=== PATIENT | male | born 1985 | race African-American/Black ===

== ENCOUNTER 2019-03-12 16:41 | Emergency (ER) | payer OTHER ==
[2019-03-12] MEDS ORDERED: HYDROCODONE/APAP 5/325 MG TAB ONE (17:24)
[2019-03-12] MEDS ORDERED: IBUPROFEN 400 MG TAB ONE (17:24)
--- NOTE | 2019-03-12 18:04 | RAD REPORT ---
EXAM DESCRIPTION: RAD - Hand Right 3 View - 03/12/2019 5:20 pm CLINICAL HISTORY: PAIN COMPARISON: <Comparisons> FINDINGS: Soft tissue swelling affects the first digit. No fracture, dislocation or foreign body a ppreciated.
--- NOTE | 2019-03-12 18:18 | EDPHYS ---
Physician Documentation [facility] Name: Gregory Skelton Age: 33 yrs Sex: Male : 1985 Arrival Date: 03/12/2019 Time: 16:49 Bed 19 Private MD: ED Physician Mo Brannon HPI: 03/12 17:05 This 33 yrs old Black Male presents to ER via Ambulatory with complaints of Hand cp Swelling. 17:05 The patient or guardian reports pain, swelling, tenderness. The complaints affect the cp MCP of right thumb and hyperthenar area. 17:05 Context: resulted from hyperextension of thumb while checking tire pressure on vehicle. cp Onset: The symptoms/episode began/occurred 3 day(s) ago. Associated signs and symptoms: Pertinent negatives: cyanosis distally, decreased sensation distally, fever, erythema. 17:05 Modifying factors: the symptoms are aggravated by movement and palpation of right cp thumb. Severity of symptoms: in the emergency department the symptoms are unchanged, despite home interventions. Historical: - Allergies: 16:54 No Known Allergies; hj - PMHx: 16:54 None; hj - PSHx: 16:54 Knee surgery; hj - Immunization history:: Adult Immunizations. - Social history:: Smoking status: . - Ebola Screening: : Patient denies travel to an Ebola-affected area in the 21 days before illness onset. ROS: 17:10 Constitutional: Negative for body aches, chills, fever, poor PO intake. cp 17:10 Cardiovascular: Negative for chest pain. cp 17:10 Respiratory: Negative for cough, shortness of breath, wheezing. 17:10 Abdomen/GI: Negative for abdominal pain, nausea, vomiting, and diarrhea. 17:10 MS/extremity: Positive for pain, swelling, tenderness, of the proximal phalanx of right thumb and MCP of right thumb and proximal and hyperthenar eminence of right hand, Negative for decreased range of motion, paresthesias. 17:10 Neuro: Negative for numbness, tingling. 17:10 All other systems are negative. Exam: 17:20 Constitutional: The patient appears in no acute distress, alert, awake, non-toxic, well cp developed, well nourished. 17:20 Head/Face: Normocephalic, atraumatic. cp 17:20 Eyes: Periorbital structures: appear normal, Conjunctiva: normal, Lids and lashes: appear normal, bilaterally. 17:20 ENT: External ear(s): are unremarkable, Nose: is normal, Mouth: is normal. 17:20 Chest/axilla: Inspection: normal. 17:20 Cardiovascular: Rate: normal. 17:20 Respiratory: the patient does not display signs of respiratory distress, Respirations: normal. 17:20 Musculoskeletal/extremity: Extremities: grossly normal except: noted in the MCP of right thumb and proximal phalanx of right thumb and hyperthenar eminence of right hand: pain, swelling, tenderness, ROM: limited passive range of motion due to pain, in the MCP of right thumb, Perfusion: the extremity is normally perfused throughout, Sensation intact. Tendon exam: specific tendon testing normal through active and passive range of motion 17:20 Skin: cellulitis, is not appreciated, no rash present. Vital Signs: 16:54 BP 118 / 75; Pulse 84; Resp 18; Temp 97.9(O); Pulse Ox 98% on R/A; Weight 117.93 kg; hj Height 5 ft. 9 in. (175.26 cm); Pain 10/10; 18:07 BP 108 / 98; Pulse 78; Resp 17; Pulse Ox 99% on R/A; Pain 6/10; tw2 16:54 Body Mass Index 38.39 (117.93 kg, 175.26 cm) Procedures: 18:16 Splinting: Splint applied to right thumb and wrist using thumb spica type. applied by cp nurse. Examined by me, post splint application: neurovascular intact, Patient tolerated well. MDM: 17:00 Patient medically screened. cp 17:45 Differential diagnosis: dislocation, closed fracture, tendonitis, sprain, strain, cp cellulitis. 18:15 ED course: VSS. Pain improved with meds. Extremity placed in thumb spica splint and cp will discharge to home for continued monitoring. 18:17 Data reviewed: vital signs, nurses notes, radiologic studies, plain films. cp 18:17 Test interpretation: by ED physician or midlevel provider: plain radiologic studies. cp Counseling: I had a detailed discussion with the patient and/or guardian regarding: the historical points, exam findings, and any diagnostic results supporting the discharge/admit diagnosis, radiology results, the need for outpatient follow up, a orthopedic surgeon, to return to the emergency department if symptoms worsen or persist or if there are any questions or concerns that arise at home. Response to treatment: the patient's symptoms have markedly improved after treatment, and as a result, I will discharge patient. 03/12 17:03 Order name: XRAY Hand RIGHT 3 View; Complete Time: 18:08 cp 03/12 18:06 Interpretation: Report reviewed. cp 03/12 18:07 Order name: Thumb Spica Splint; Complete Time: 18:19 cp Administered Medications: 17:11 Drug: HYDROcodone-acetaminophen 5 mg-325 mg 1 tabs Route: PO; tw2 18:04 Follow up: Response: No adverse reaction; Pain is decreased tw2 17:11 Drug: Ibuprofen 800 mg Route: PO; tw2 18:04 Follow up: Response: No adverse reaction tw2 Disposition: 18:35 Chart complete. 03/13 07:52 Co-signature as Attending Physician, Mo Brannon MD I agree with the assessment and kdr plan of care. Disposition: 03/12/19 18:18 Discharged to Home. Impression: Unspecified sprain of right thumb. - Condition is Stable. - Discharge Instructions: Thumb Sprain. - Prescriptions for Ibuprofen 800 mg Oral Tablet - take 1 tablet by ORAL route every 8 hours As needed take with food; 30 tablet. - Medication Reconciliation Form, Thank You Letter, Antibiotic Education, Prescription Opioid Use form. - Follow up: Nick Gonzalez MD; When: 5 - 6 days; Reason: Recheck today's complaints, pain swelling continues. - Problem is new. - Symptoms have improved. Signatures: Dispatcher [employer] EDMS Mo Brannon MD MD [facility] Mitch Hammer RN RN Timi De Santiago PA PA cp She Wei RN RN tw2 Corrections: (The following items were deleted from the chart) 03/12 18:26 18:18 03/12/2019 18:18 Discharged to Home. Impression: Unspecified sprain of right tw2 thumb. Condition is Stable. Forms are Medication Reconciliation Form, Thank You Letter, Antibiotic Education, Prescription Opioid Use. Follow up: Nick Gonzalez; When: 5 - 6 days; Reason: Recheck today's complaints, pain swelling continues. Problem is new. Symptoms have improved. cp
--- NOTE | 2019-03-12 18:18 | ER ---
Nurse's Notes [facility] Name: Gregory Skelton Age: 33 yrs Sex: Male : 1985 Arrival Date: 03/12/2019 Time: 16:49 Bed 19 Private MD: Diagnosis: Unspecified sprain of right thumb Presentation: 03/12 16:52 Presenting complaint: Patient states: my R thumb is swollen for checking pressure on my hj tires; its been going on for 3 days;. Transition of care: patient was not received from another setting of care. Onset of symptoms was March 12, 2019. Risk Assessment: Do you want to hurt yourself or someone else? Patient reports no desire to harm self or others. Initial Sepsis Screen: Does the patient meet any 2 criteria? No. Patient's initial sepsis screen is negative. Does the patient have a suspected source of infection? No. Patient's initial sepsis screen is negative. Care prior to arrival: None. 16:52 Method Of Arrival: Ambulatory 16:52 Acuity: LIZETH 4 hj Historical: - Allergies: 16:54 No Known Allergies; hj - PMHx: 16:54 None; hj - PSHx: 16:54 Knee surgery; hj - Immunization history:: Adult Immunizations. - Social history:: Smoking status: . - Ebola Screening: : Patient denies travel to an Ebola-affected area in the 21 days before illness onset. Screenin:07 Abuse screen: Denies threats or abuse. Nutritional screening: No deficits noted. tw2 Tuberculosis screening: No symptoms or risk factors identified. Fall Risk None identified. Assessment: 17:00 General: Appears in no apparent distress. obese, Behavior is calm, cooperative, tw2 appropriate for age. Pain: Complains of pain in dorsal aspect of proximal phalanx of right thumb. Neuro: Level of Consciousness is awake, alert, obeys commands, Oriented to person, place, time, situation. Cardiovascular: Patient's skin is warm and dry. Respiratory: Airway is patent Respiratory effort is even, unlabored, Respiratory pattern is regular, symmetrical. GI: No signs and/or symptoms were reported involving the gastrointestinal system. : No signs and/or symptoms were reported regarding the genitourinary system. EENT: No signs and/or symptoms were reported regarding the EENT system. Derm: No signs and/or symptoms reported regarding the dermatologic system. Musculoskeletal: Circulation, motion, and sensation intact. Range of motion: limited in MCP of right thumb Swelling present in dorsal aspect of proximal phalanx of right thumb. 18:07 Reassessment: Patient appears in no apparent distress at this time. No changes from tw2 previously documented assessment. Patient and/or family updated on plan of care and expected duration. Pain level reassessed. Patient is alert, oriented x 3, equal unlabored respirations, skin warm/dry/pink. Patient states feeling better. Patient states symptoms have improved. 18:25 Reassessment: Patient appears in no apparent distress at this time. No changes from tw2 previously documented assessment. Patient and/or family updated on plan of care and expected duration. Pain level reassessed. Patient is alert, oriented x 3, equal unlabored respirations, skin warm/dry/pink. Vital Signs: 16:54 BP 118 / 75; Pulse 84; Resp 18; Temp 97.9(O); Pulse Ox 98% on R/A; Weight 117.93 kg; hj Height 5 ft. 9 in. (175.26 cm); Pain 10/10; 18:07 BP 108 / 98; Pulse 78; Resp 17; Pulse Ox 99% on R/A; Pain 6/10; tw2 16:54 Body Mass Index 38.39 (117.93 kg, 175.26 cm) ED Course: 16:49 Patient arrived in ED. mr 16:53 Triage completed. hj 16:55 Arm band placed on left wrist. hj 16:57 [facility]aca [facility]. cp 16:57 Mo Brannon MD is Attending Physician. cp 17:00 Bed in low position. Call light in reach. Adult w/ patient. tw2 17:08 She Wei, DARIO is Primary Nurse. tw2 17:20 XRAY Hand RIGHT 3 View In Process Unspecified. EDMS 18:17 Nick Gonzalez MD is Referral Physician. cp 18:25 No provider procedures requiring assistance completed. Patient did not have IV access tw2 during this emergency room visit. Administered Medications: 17:11 Drug: HYDROcodone-acetaminophen 5 mg-325 mg 1 tabs Route: PO; tw2 18:04 Follow up: Response: No adverse reaction; Pain is decreased tw2 17:11 Drug: Ibuprofen 800 mg Route: PO; tw2 18:04 Follow up: Response: No adverse reaction tw2 Outcome: 18:18 Discharge ordered by . cole 18:25 Discharged to home ambulatory, with significant other. tw2 18:25 Condition: stable 18:25 Discharge instructions given to patient, significant other, Instructed on discharge instructions, follow up and referral plans. medication usage, Demonstrated understanding of instructions, follow-up care, medications, Prescriptions given X 1. 18:26 Patient left the ED. tw2 Signatures: Dispatcher [employer] HUDSON Andreea LirianoMitch, RN RN hj Tiim Menchaca PA PA cp Wise, Tara RN RN tw2 Corrections: (The following items were deleted from the chart) 16:56 16:54 Pulse 84bpm; Resp 18bpm; Pulse Ox 98% RA; Temp 97.9F Oral; 117.93 kg; Height 5 hj ft. 9 in.; BMI: 38.3; Pain 10/10; hj
== END 2019-03-12 18:26 | disposition home or self-care (01) ==
LOC: ER 16:41
DX: S63.601A Unspecified sprain of right thumb, initial encounter (principal); X50.9XXA Other and unspecified overexertion or strenuous movements or postures, initial encounter
CPT/HCPCS: 99283

== ENCOUNTER 2019-05-29 20:31 | Emergency (ER) | payer OTHER ==
[2019-05-29] MEDS ORDERED: LIDOCAINE 1% MPF 5 ML VIAL ONE (20:39)
[2019-05-29] MEDS ORDERED: HYDROCODONE/APAP 10/325 TAB ONE (20:47)
[2019-05-29] MEDS ORDERED: CEFAZOLIN SODIUM 1 GM/VIAL ONE (21:05)
[2019-05-29] MEDS ORDERED: WATER FOR INJ,STERILE 10 ML ONE (21:05)
--- NOTE | 2019-05-29 21:08 | ER ---
Nurse's Notes [facility] Name: Gregory Skelton Age: 34 yrs Sex: Male : 1985 Arrival Date: 05/29/2019 Time: 20:31 Bed 5 Private MD: Diagnosis: Pilonidal cyst Presentation: 05/29 20:41 Presenting complaint: Patient states: Abscess to top of buttocks that began about 3 lp1 days ago, unable to lie on back or sit due to pain. Transition of care: patient was not received from another setting of care. Onset of symptoms was May 29, 2019. Risk Assessment: Do you want to hurt yourself or someone else? Patient reports no desire to harm self or others. Initial Sepsis Screen: Does the patient meet any 2 criteria? No. Patient's initial sepsis screen is negative. Does the patient have a suspected source of infection? No. Patient's initial sepsis screen is negative. Care prior to arrival: None. 20:41 Method Of Arrival: Ambulatory lp1 20:41 Acuity: LIZETH 4 lp1 Historical: - Allergies: 20:42 No Known Allergies; lp1 - Home Meds: 20:42 None [Active]; lp1 - PMHx: 20:42 None; lp1 - PSHx: 20:42 Knee surgery; lp1 - Immunization history:: Adult Immunizations up to date. - Social history:: Smoking status: Patient uses tobacco products, smokes one-half pack cigarettes per day. - Ebola Screening: : No symptoms or risks identified at this time. Screenin:42 Abuse screen: Denies threats or abuse. Denies injuries from another. Nutritional tl1 screening: No deficits noted. Tuberculosis screening: No symptoms or risk factors identified. Fall Risk None identified. 20:42 Abuse screen: Denies threats or abuse. Denies injuries from another. Nutritional rr5 screening: No deficits noted. Tuberculosis screening: No symptoms or risk factors identified. Fall Risk None identified. Total Andrade Fall Scale indicates No Risk (0-24 pts). Assessment: 20:39 General: Appears in no apparent distress. uncomfortable, Behavior is calm, cooperative, tl1 appropriate for age. Pain: Complains of pain in gluteal cleft. Neuro: Level of Consciousness is awake, alert, obeys commands, Oriented to person, place, time, situation. Cardiovascular: No deficits noted. Denies chest pain. Respiratory: Airway is patent Trachea midline Respiratory effort is even, unlabored. GI: Abdomen is obese. : No signs and/or symptoms were reported regarding the genitourinary system. Derm: Abscess located on gluteal cleft is quarter sized, is hot to touch, is raised, Reports. 21:17 Reassessment: Patient appears in no apparent distress at this time. Patient is alert, rr5 oriented x 3, equal unlabored respirations, skin warm/dry/pink. discharge instruction given and explained without complaints made. Patient states feeling better. Patient states symptoms have improved. Vital Signs: 20:42 BP 145 / 98; Pulse 92; Resp 18; Temp 98.6(O); Pulse Ox 97% on R/A; Weight 117.03 kg; lp1 Height 5 ft. 8 in. (172.72 cm); Pain 10/10; 21:17 BP 135 / 70; Pulse 90; Resp 16; Pulse Ox 99% ; Pain 4/10; rr5 20:42 Body Mass Index 39.23 (117.03 kg, 172.72 cm) lp1 ED Course: 20:31 Patient arrived in ED. ag3 20:35 Bin Chaves MD is Attending Physician. pkl 20:39 Hortensia Berrios, DARIO is Primary Nurse. tl1 20:41 Triage completed. lp1 20:42 Patient has correct armband on for positive identification. Bed in low position. Call rr5 light in reach. Pulse ox on. NIBP on. 20:42 Arm band placed on. lp1 20:50 Assist provider with I \T\ D: of an abscess on pilonidal cyst Set up I\T\D tray. Performed rr 5 by Bin Chaves MD Culture sent to lab. Wound packed. 4X4s, Dressing with 4X4s, tape Patient tolerated well. 21:07 Mitch Hendrickson MD is Referral Physician. pkl 21:18 Patient did not have IV access during this emergency room visit. rr5 Administered Medications: 20:48 Drug: [place] 10 mg-325 mg 1 tabs {Note: rass 0.} Route: PO; rr5 21:19 Follow up: Response: No adverse reaction; Pain is decreased; RASS: Alert and Calm (0) rr5 20:50 Drug: Lidocaine (1 %) 10 ml {Note: by dr. chaves.} Volume: 5 ml; Route: Infiltration; rr5 21:12 Drug: Ancef 1 grams Route: IM; Site: left gluteus; rr5 21:19 Follow up: Response: Medication administered at discharge. rr5 Outcome: 21:07 Discharge ordered by . william 21:18 Discharged to home ambulatory, with family. rr5 21:18 Condition: stable 21:18 Discharge instructions given to patient, Instructed on discharge instructions, follow up and referral plans. medication usage, Demonstrated understanding of instructions, follow-up care, medications, Prescriptions given X 2. 21:19 Patient left the ED. rr5 Addendum: 06/03/2019 14:57 Addendum: Culture Results: Positive wound culture. No further action required. Bacteria s s sensitive to prescribed antibiotic. Signatures: Bin Chaves MD MD pkl Nicki Lopez RN RN ss Stephanie Mays RN RN lp1 Hortensia Berrios, RN RN tl1 Madhavi Murcia [facility] David Sky, RN RN rr5
--- NOTE | 2019-05-29 21:08 | EDPHYS ---
Physician Documentation [facility] Name: Gregory Skelton Age: 34 yrs Sex: Male : 1985 Arrival Date: 05/29/2019 Time: 20:31 Bed 5 Private MD: ED Physician Bin Chaves HPI: 05/29 20:45 This 34 yrs old Black Male presents to ER via Ambulatory with complaints of Boil. pkl 20:45 The patient presents with an abscess of the top of the buttock. Description: The pkl affected area is moderate sized, approximately 2 cm(s). Onset: The symptoms/episode began/occurred 3 day(s) ago. Historical: - Allergies: 20:42 No Known Allergies; lp1 - Home Meds: 20:42 None [Active]; lp1 - PMHx: 20:42 None; lp1 - PSHx: 20:42 Knee surgery; lp1 - Immunization history:: Adult Immunizations up to date. - Social history:: Smoking status: Patient uses tobacco products, smokes one-half pack cigarettes per day. - Ebola Screening: : No symptoms or risks identified at this time. ROS: 20:45 Eyes: Negative for injury, pain, redness, and discharge, ENT: Negative for injury, pkl pain, and discharge, Neck: Negative for injury, pain, and swelling, Cardiovascular: Negative for chest pain, palpitations, and edema, Respiratory: Negative for shortness of breath, cough, wheezing, and pleuritic chest pain, Abdomen/GI: Negative for abdominal pain, nausea, vomiting, diarrhea, and constipation, Back: Negative for injury and pain, : Negative for injury, bleeding, discharge, and swelling, MS/Extremity: Negative for injury and deformity, Neuro: Negative for headache, weakness, numbness, tingling, and seizure. 20:45 Skin: Positive for abscess, of the top of the buttocks. Exam: 20:45 Head/Face: Normocephalic, atraumatic. Eyes: Pupils equal round and reactive to light, pkl extra-ocular motions intact. Lids and lashes normal. Conjunctiva and sclera are non-icteric and not injected. Cornea within normal limits. Periorbital areas with no swelling, redness, or edema. ENT: Nares patent. No nasal discharge, no septal abnormalities noted. Tympanic membranes are normal and external auditory canals are clear. Oropharynx with no redness, swelling, or masses, exudates, or evidence of obstruction, uvula midline. Mucous membranes moist. Neck: Trachea midline, no thyromegaly or masses palpated, and no cervical lymphadenopathy. Supple, full range of motion without nuchal rigidity, or vertebral point tenderness. No Meningismus. Chest/axilla: Normal chest wall appearance and motion. Nontender with no deformity. No lesions are appreciated. Cardiovascular: Regular rate and rhythm with a normal S1 and S2. No gallops, murmurs, or rubs. Normal PMI, no JVD. No pulse deficits. Respiratory: Lungs have equal breath sounds bilaterally, clear to auscultation and percussion. No rales, rhonchi or wheezes noted. No increased work of breathing, no retractions or nasal flaring. Abdomen/GI: Soft, non-tender, with normal bowel sounds. No distension or tympany. No guarding or rebound. No evidence of tenderness throughout. Back: No spinal tenderness. No costovertebral tenderness. Full range of motion. MS/ Extremity: Pulses equal, no cyanosis. Neurovascular intact. Full, normal range of motion. Neuro: Awake and alert, GCS 15, oriented to person, place, time, and situation. Cranial nerves II-XII grossly intact. Motor strength 5/5 in all extremities. Sensory grossly intact. Cerebellar exam normal. Normal gait. 20:45 Skin: abscess, that is moderate sized, approximately 2 cm(s), of the top of buttock, with fluctuance, that is moderate. Vital Signs: 20:42 BP 145 / 98; Pulse 92; Resp 18; Temp 98.6(O); Pulse Ox 97% on R/A; Weight 117.03 kg; lp1 Height 5 ft. 8 in. (172.72 cm); Pain 10/10; 21:17 BP 135 / 70; Pulse 90; Resp 16; Pulse Ox 99% ; Pain 4/10; rr5 20:42 Body Mass Index 39.23 (117.03 kg, 172.72 cm) lp1 Procedures: 21:04 I \T\ D: Incision and drainage was performed for an abscess of the top of buttock Prepped pkl with Betadine, Anesthetized with 5 ml's 1% Lidocaine w/ Epi. Incised with #11 blade. Drained large amount purulent fluid. Packed with iodoform gauze, Dressing: sterile 4x4 gauze, the patient tolerated the procedure well. MDM: 20:35 Patient medically screened. pk 21:04 Data reviewed: vital signs, nurses notes. ED course: Advised to follow up with Dr. william Hendrickson in 2 days. Patient understood instruction.. 05/29 21:04 Order name: Wound Culture [facility] 05/29 21:04 Order name: Wound Culture [facility] 05/29 20:48 Order name: Dressing - Wound; Complete Time: 21:12 rr5 05/29 20:48 Order name: Gloves, Sterile; Complete Time: 21:12 rr5 05/29 20:48 Order name: I\T\D Setup; Complete Time: 21:12 rr5 Administered Medications: 20:48 Drug: [place] 10 mg-325 mg 1 tabs {Note: rass 0.} Route: PO; rr5 21:19 Follow up: Response: No adverse reaction; Pain is decreased; RASS: Alert and Calm (0) rr5 20:50 Drug: Lidocaine (1 %) 10 ml {Note: by dr. chaves.} Volume: 5 ml; Route: Infiltration; rr5 21:12 Drug: Ancef 1 grams Route: IM; Site: left gluteus; rr5 21:19 Follow up: Response: Medication administered at discharge. rr5 Disposition: 05/29/19 21:07 Discharged to Home. Impression: Pilonidal cyst. - Condition is Stable. - Prescriptions for Dicloxacillin 500 mg Oral Capsule - take 1 capsule by ORAL route every 6 hours for 7 days; 28 capsule. Ultram 50 mg Oral Tablet - take 1 tablet by ORAL route every 8 hours As needed; 15 tablet. - Medication Reconciliation Form, Thank You Letter, Antibiotic Education, Prescription Opioid Use form. - Follow up: Mitch Hendrickson MD; When: 2 - 3 days; Reason: Re-evaluation by your physician. - Problem is new. - Symptoms have improved. Signatures: Dispatcher [employer] Bin Zepeda MD MD pkl Pena, Laura, RN RN lp1 David Sky RN RN rr5 Corrections: (The following items were deleted from the chart) 21:19 21:07 05/29/2019 21:07 Discharged to Home. Impression: Pilonidal cyst. Condition is rr5 Stable. Forms are Medication Reconciliation Form, Thank You Letter, Antibiotic Education, Prescription Opioid Use. Follow up: Mitch Hendrickson; When: 2 - 3 days; Reason: Re-evaluation by your physician. Problem is new. Symptoms have improved. pkl
== END 2019-05-29 21:19 | disposition home or self-care (01) ==
LOC: ER 20:31
PROC: 0H98XZZ Drainage of Buttock Skin, External Approach (ICD-10-PCS; principal; 2019-05-29)
DX: L05.01 Pilonidal cyst with abscess (principal); F17.210 Nicotine dependence, cigarettes, uncomplicated
CPT/HCPCS: 87070; 87205; 87077; 87186; 96372; 99284; 10080; J0690

== ENCOUNTER 2019-06-03 07:09 | Day surgery (SDC) | payer OTHER ==
[2019-05-31 13:39] LABS: Basophils % 0.7 % (0-1.3); Hematocrit 36.3 % (39.6-49.0); Lymphocytes % 27.6 % (15.3-44.8); MPV 7.7 fL (7.6-11.3); RBC Red Blood Cell Count 3.89 M/uL (4.33-5.43)
[2019-05-31 13:53] LABS: Potassium 3.6 mmol/L (3.5-5.1)
--- NOTE | 2019-05-31 14:29 | RAD REPORT ---
EXAM DESCRIPTION: RAD - Chest Pa And Lat (2 Views) - 05/31/2019 1:47 pm CLINICAL HISTORY: pre op sds room5, pending soft tissue mass removal COMPARISON: None. TECHNIQUE: PA and lateral views of the chest were obtained. FINDINGS: The lungs are clear. Heart size is normal and central vasculature is within normal limit s. No pleural effusion or pneumothorax seen. No acute bony finding noted. No aortic abnormality. IMPRESSION: No acute cardiopulmonary process.
[2019-06-03] MEDS ORDERED: Ringers Lactate 1,000 ML IV ONE (07:48)
[2019-06-03] MEDS ORDERED: CEFAZOLIN/SWI 1gm 1 GM/10 ML SYR ONE (07:48)
[2019-06-03] MEDS ORDERED: ROCURONIUM 50 MG/5 ML VIAL IV ONE (08:11)
[2019-06-03] MEDS ORDERED: PROPOFOL 200 MG/20 ML VIAL IV ONE (08:11)
[2019-06-03] MEDS ORDERED: FENTANYL CITR 100 MCG/2 ML ONE (08:11)
[2019-06-03] MEDS ORDERED: LIDOCAINE 1% MPF 2 ML AMPULE ONE (08:13)
[2019-06-03] MEDS ORDERED: ONDANSETRON 4 MG/2 ML VIAL ONE (08:13)
[2019-06-03] MEDS ORDERED: METHYLENE BLUE 0.5% 10 ML AMP ONE (08:15)
[2019-06-03] MEDS ORDERED: MIDAZOLAM HCL 2 MG/2 ML INJ ONE (08:27)
[2019-06-03] MEDS ORDERED: GLYCOPYRROLATE 0.2 MG/ML SYR ONE (09:09)
[2019-06-03] MEDS ORDERED: NEOSTIGMINE 1 MG/ML -10 ML VIAL ONE (09:10)
--- NOTE | 2019-06-03 09:16 | P.BOP ---
Preoperative diagnosis: infected pilonydal cyst with abscess Postoperative diagnosis: same Primary procedure: Wide excision of infected pilonydal cyst with abscess incision and drainage Estimated blood loss: <10cc Specimen: cyst, culture Findings: infected pilonydal cyst with abscess Anesthesia: General Transferred to: Recovery Room Condition: Good
[2019-06-03 09:32] VITALS: O2SAT 100
[2019-06-03] MEDS ORDERED: PROMETHAZINE 25 MG/ML VIAL ONE (09:38)
[2019-06-03] MEDS ORDERED: TRAMADOL HCL 50 MG TAB ONE (10:11)
[2019-06-03 10:18] VITALS: BP 141/90; TEMP 96.8
== END 2019-06-03 11:00 | disposition home or self-care (01) ==
LOC: OR 07:09
PROVIDERS: ATTEND Surgery
PROC: 0JB90ZZ Excision of Buttock Subcutaneous Tissue and Fascia, Open Approach (ICD-10-PCS; principal; 2019-06-03 08:30)
DX: L05.01 Pilonidal cyst with abscess (principal); F17.210 Nicotine dependence, cigarettes, uncomplicated; E66.9 Obesity, unspecified; Z68.38 Body mass index [BMI] 38.0-38.9, adult; Z82.49 Family history of ischemic heart disease and other diseases of the circulatory system
CPT/HCPCS: 87070; 85025; 80048; 36415; 87205; 88304; 87075; 71046; 11770; J2704; J2710; J2550; J2250; J3010; J2001; J0690; J2405

== ENCOUNTER 2020-05-02 18:22 | Emergency (ER) | payer OTHER ==
--- OUTSIDE RECORDS SUMMARY | 2020-05-02 18:24 | XMS REPORT | Continuity of Care Document ---
:1985 Author Organization [facility] t Address [address] [place] [address] Care Team Providers Name Role Phone Dar Mishra MD Attending Clinician Problems This patient has no known problems. Allergies, Adverse Reactions, Alerts This patient has no known allergies or adverse reactions. Medications This patient has no known medications. Procedures This patient has no known procedures. Encounters Start End Encounter Admission Attending Care Care Encounter Source Date/Time Date/Time Type Type Clinicians Facility Department ID 2020-04-16 2020-04-16 Telephone ROBINSON Mishra [id number] 00:00:00 00:00:00 Beau Dar [facility] [id number] Surgical [id number] Specialti [id number] es 198 [place] 2020-04-15 2020-04-15 Office ROBINSON Mishra [id number] 13:20:48 13:36:24 Visit Beau Dar [facility] [id number] Surgical [id number] Specialti [id number] es 198 Neetu Results This patient has no known results.
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
--- OUTSIDE RECORDS SUMMARY | 2020-05-02 18:25 | XMS REPORT | Summary of Care ---
:1985 Author Organization [facility] Address [address] [place] [address] Care Team Providers Name Role Phone Pcp, Does Not Have A Primary Care Provider Reason for Referral MRI/CAT Scan (Routine) Status Reason Specialty Diagnoses / Referred By Referred To Procedures Contact Contact New Request Diagnostic Diagnoses Chronic bilateral low back pain, unspecified whether sciatica present Beau Mishra Radiology Procedures MR LUMBAR SPINE WO TWILA Dodge MD [address] [place] [address] [place] [address] Reason for Visit Reason Comments Leg Pain left 10/10 x 2 months Foot Pain right 10/10 x 5 months Auth/Cert Status Reason Specialty Diagnoses / Procedures Referred By C ontact Referred To Contact Radiology [facility] [address] [place] [address] Phone: Fax: Encounter Details Date Type Department Care Team Description 03/23/2020 Office Visit [facility] Orthopaedic Beau Mishra hronic bilateral low Surgery- Neetu Dodge MD back pain, unspecified [address] whether sciatica [address] present (Primary Dx) [place] [address] [place], [place] [phone] Allergies No Known Allergiesdocumented as of this encounter (statuses as of 03/25/2020) Medications Medication Sig Dispensed Refills Start Date [...] as of this encounter (statuses as of 03/25/2020) Active Problems No known active problemsdocumented as of this encounter (statuses as of 03/25/2020) Social History Tobacco Use Types Packs/Day Years [...] of this encounter Last Filed Vital Signs Vital Sign Reading Time Taken Comments Blood Pressure 121/88 03/23/2020 3:29 PM CDT Pulse 80 03/23/2020 3:29 PM CDT Temperature - - Respiratory Rate - - Oxygen Saturation - - Inhaled Oxygen Concentration - - Weight 124.9 kg (275 lb 6.4 oz) 03/23/2020 3:29 PM CDT Height 172.7 cm (5' 8") 03/23/2020 3:29 PM CDT Body Mass Index 41.87 03/23/2020 3:29 PM CDT documented in this encounter Progress Notes Beau Mishra MD - 03/23/2020 4:00 PM CDT Cc: Chief Complaint Patient presents with Leg Pain left 10/10 x 2 months Foot Pain right 10/10 x 5 months Gregory Skelton is a 34 year old male. Knee Pain Incident onset: several months The incident occurred at home. There was no injury mechanism. The pain is present in the left knee, left heel, left ankle and left foot. The quality of the pain is described as aching, shooting and stabbing. The pain is at a severity of 6/10. The pain is moderate. The pain has been worsening since onset. Associated symptoms include an inability to bear weight. Associated symptoms comments: Pain radiates from posterior aspect of knee down to his heel. Denies back pain.. The symptoms are aggravated by movement and weight bearing. He has tried non-weight bearing for the symptoms. Allergies Gregory has No Known Allergies. Medications Outpatient Medications Prior to Visit Medication Sig Dispense Refill DICLOFENAC 75 mg EC tablet TAKE 1 TABLET BY MOUTH TWICE DAILY WITH MEALS 60 tablet 0 traMADol 50 mg tablet Take 1 tablet by mouth every 4 (four) hours as needed for Pain (scale 7-10). 40 tablet 0 amoxicillin-pot clavulanate 500 mg 500-125 mg tablet Take 1 tablet by mouth every 8 (eight) hours. 20 tablet 0 traMADol (ULTRAM) 50 mg tablet Take 1 tablet by mouth every 6 (six) hours as needed for Pain (scale 7-10). 20 tablet 0 No facility-administered medications prior to visit. Histories No past medical history on file. No past surgical history on file. Social History Socioeconomic History Marital status: Single Spouse name: Not on file Number of children: Not on file Years of education: Not on file Highest education level: Not on file Occupational History Not on file Social Needs Financial resource strain: Not on file Food insecurity: Worry: Not on file Inability: Not on file Transportation needs: Medical: Not on file Non-medical: Not on file Tobacco Use Smoking status: Current Every Day Smoker Smokeless tobacco: Never Used Substance and Sexual Activity Alcohol use: Never Frequency: Never Drug use: Not on file Sexual activity: Not on file Lifestyle Physical activity: Days per week: Not on file Minutes per session: Not on file Stress: Not on file Relationships Social connections: Talks on phone: Not on file Gets together: Not on file Attends sikhism service: Not on file Active member of club or organization: Not on file Attends meetings of clubs or organizations: Not on file Relationship status: Not on file Intimate partner violence: Fear of current or ex partner: Not on file Emotionally abused: Not on file Physically abused: Not on file Forced sexual activity: Not on file Other Topics Concern Not on file Social History Narrative Not on file Family History Problem Relation Age of Onset No Significant Medical Problems Mother No Significant Medical Problems Father Review of Systems Constitutional: Negative. HENT: Negative. Eyes: Negative. Respiratory: Negative. Breasts: Negative. Cardiovascular: Negative. Gastrointestinal: Negative. Genitourinary: Negative. Musculoskeletal: Negative. Skin: Negative. Neurological: Negative. Psychiatric/Behavioral: Negative. Endocrine: Endocrine negative Vital Signs There were no vitals taken for this visit. Physical Exam Musculoskeletal: General: Well-developed well-nourished oriented to person place and time HEENT normocephalic atraumatic atraumatic pupils equal round reactive to light extraocular muscles intact Cervical thoracic and lumbar spine without focal deficit normal kyphosis and lordosis Chest clear to auscultation and percussion Cardiovascular regular rate and rhythm without gallop rub or murmur soft without organomegaly Normal bowel sounds Neurologic: Focal myotome or dermatomal deficits Vascular: Intact symmetrical bilateral upper and lower extremities Skin without stasis varicosities or breakdown Extremities without cyanosis clubbing or edema Lymphatics no peripheral lymphedema Psych normal mood and affect. Neurovascular function is intact. To include brisk capillary refill warm pink skin active motor function and sensory function intact. Nursing note and vitals reviewed. Assessment/Plan Lumbar Radiculopathy MRI of the L-Spine. Follow up within ten days of the MRI for results. documented in this encounter Plan of Treatment Name Type Priority Associated Diagnoses Order S chedule MR LUMBAR SPINE WO IMAGING Routine Chronic bilateral low Expected: 03/24/2020, CONTRAST back pain, unspecified Expir es: 03/24/2021 whether sciatica present Health Maintenance Due Date Last Done Comments VARICELLA VACCINES (1 of 2 - 2-dose childhood series) 1985 PNEUMOCOCCAL 0-64 YEARS COMBINED SERIES (1 of 1 - 1990 PPSV23) DTaP,Tdap,and Td Vaccines (1 - Tdap) 1995 INFLUENZA VACCINE (#1) 2020 Depression Screening 10/17/2020 10/17/2019 documented as of this encounter Results Not on filedocumented in this encounter Visit Diagnoses Diagnosis Chronic bilateral low back pain, unspeci fied whether sciatica present - Primary documented in this encounter Insurance Payer Benefit Plan / Subscriber ID Effective Phone Address T ype Group Dates MEDICARE MEDICARE PART xxxxxxxxxxx 2015-Pres [phone] Medicare A & B ent [id number] [place] [address] [employer] xxxxxxxxx 2018-Pres [address] [place] [id number] [place] [address] documented as of this encounter
--- OUTSIDE RECORDS SUMMARY | 2020-05-02 18:25 | XMS REPORT | Summary of Care ---
:1985 Author Organization [facility] - [facility] Address [address] [place] [address] Care Team Providers Name Role Phone Pcp, Does Not Have A Primary Care Provider Encounter Details Date Type Department Care Team Description 03/23/2020 Orders Only [facility] Doctor Unassigned, No [address] [facility] [place] [address] [address] [place] [address] Allergies No Known Allergiesdocumented as of this [...] Date Type Specialty Care Team Description 03/23/2020 Appointment Radiology Beau Mishra MD [address] [phone] 03/23/2020 Office Visit Orthopedic Surgery Shefali Mishra MD [address] [phone] Health Maintenance Due Date Last Done Comments VARICELLA VACCINES (1 of 2 - 2-dose childhood series) 1985 PNEUMOCOCCAL 0-64 YEARS COMBINED SERIES (1 of 1 - 1990 PPSV23) DTaP,Tdap,and Td Vaccines (1 - Tdap) 1995 INFLUENZA VACCINE (Season Ended) 2020 Depression Screening 10/17/2020 10/17/2019 documented as of this encounter Procedures Procedure Name Priority Date/Time Associated Diagnosis Comme nts CONSENT/REFUSAL FOR Routine 03/23/2020 2:56 PM DIAGNOSIS AND TREATMENT CDT ASSIGNMENT OF BENEFITS Routine 03/23/2020 2:56 PM CDT documented in this encounter Results Not on filedocumented in this encounter Insurance Payer Benefit Plan / Subscriber ID Effective Phone Address T ype Group Dates MEDICARE MEDICARE PART xxxxxxxxxxx 2015-Pres [phone] Medicare A & B ent [id number] [place] [id number] [employer] xxxxxxxxx 2018-Pres [address] [place] [id number] [place] [address] documented as of this encounter
--- OUTSIDE RECORDS SUMMARY | 2020-05-02 18:26 | XMS REPORT | Summary of Care ---
:1985 Author Organization [facility] - [facility] Address [address] [place] [address] Care Team Providers Name Role Phone Pcp, Does Not Have A Primary Care Provider Reason for Referral MRI/CAT Scan (Routine) Status Reason Specialty Diagnoses / Referred By Referred To Procedures Contact Contact New Request Diagnostic Diagnoses Chronic bilateral low back pain, unspecified whether sciatica present Beau Mishra Radiology Procedures MR LUMBAR SPINE WO TWILA Dodge MD [address] [place] [address] [place] [address] Reason for Visit Reason Comments Leg Pain left 10/10 x 2 months Foot Pain right 10/10 x 5 months Auth/Cert Status Reason Specialty Diagnoses / Procedures Referred By C ontact Referred To Contact Radiology [facility] X[facility] [address] [place] [address] Phone: Fax: Encounter Details Date Type Department Care Team Description 03/23/[address] [facility] Orthopaedic Beau Mishra hronic bilateral low Surgery- Neetu oDdge MD back pain, unspecified [address] whether sciatica [address] present (Primary Dx) [place] [address] [place], [place] [phone] Allergies No Known Allergiesdocumented as of [...] file Gets together: Not on file Attends cheondoism service: Not on file Active member of [...] BOX Medicare A & B ent [id number] [place] [id number] [employer] xxxxxxxxx 2018-Pres [address] [place] [id number] [place] [address] documented as of this encounter
--- OUTSIDE RECORDS SUMMARY | 2020-05-02 18:26 | XMS REPORT | Summary of Care ---
:1985 Author Organization [facility] Address [address] [place] [address] Care Team Providers Name Role Phone Pcp, Does Not Have A Primary Care Provider Reason for Referral MRI/CAT Scan (Routine) Status Reason Specialty Diagnoses / Referred By Referred To Procedures Contact Contact Closed Diagnostic Diagnoses Chronic bilateral low back pain, unspecified whether sciatica present Beau Mishra Radiology Procedures MR LUMBAR SPINE WO CONTRAST MD Dar [address] [facility] [place] [address] Reason for Visit MRI/CAT Scan (Routine) Status Reason Specialty Diagnoses / Referred By Referred To Procedures Contact Contact Closed Diagnostic Diagnoses Chronic bilateral low back pain, unspecified whether sciatica present Beau Mishra Radiology Procedures MR LUMBAR SPINE WO CONTRAST MD Dar [address] [place] [address] [place] [address] Encounter Details Date Type Department Care Team Description 04/08/2020 Hospital Encounter [facility] Larisa Mishra Arrived [facility] [address] [place] [address] Dr vazquez [address] [place] [address] [address] [phone] [place] [address] Allergies No Known Allergiesdocumented as of this encounter (statuses as of 04/09/2020) Medications Medication Sig Dispensed Refills Start Date [...] directions back pain, unspecified whether sciatica present DICLOFENAC 75 mg EC TAKE 1 TABLET BY 60 tablet 1 03/30/2020 Active tabletIndications: Acute MOUTH TWICE pain of both knees DAILY WITH MEALS documented as of this encounter (statuses as of 04/09/2020) Active Problems No known active problemsdocumented as of this encounter (statuses as of 04/09/2020) Social History Tobacco Use Types Packs/Day Years [...] Name Priority Date/Time Associated Diagnosis Comme nts MR LUMBAR SPINE WO Routine 04/08/2020 8:31 AM Chronic bilater al Results for this CONTRAST CDT low back pain, procedure are in unspecified whether the resu lts sciatica present section. documented in this encounter Results MR LUMBAR SPINE WO CONTRAST (04/08/2020 8:31 AM CDT) Specimen Narrative Performed At HISTORY: Chronic back pain, bilateral le g pain, getting worse. PACS/VR/DOSE TECHNIQUE: Sagittal T2 FRFSE, T1, STIR a nd axial T2 FRFSE T1 studies of lumbar spines are obtained. Additional c oronal T2 FRFSE study is also obtained. FINDINGS: Minimal levoscoliosis noted. N o acute compression fracture or aggressive lesions of the bones detected . Spinal canal appears to be of adequate size and normal conus/cauda equina are found at the level of T12. Visualized retroperitoneum is unremarkable for aortic aneurysm or enlarged lymph nodes or hydronephrosis. T12-L1, L1-L2, L2-L3, L3-L4, L4-L5, L5-S1: All discs m aintain normal height and hydration. No disc desiccation detec nolan. No bulging of the disc into the spinal canal. No foraminal narrowing . Facet arthritis noted with thickened lig amentum flavum at all lumbar levels, slightly more hypertrophic changes at L3-L4 an d L4-L5 levels with small amount of fluid noted in facet kalia nts at L3-L4, L4-L5, L5-S1. CONCLUSIONS: Multilevel lumbar facet art hritis. No disc degeneration, bulging of the disc or disc herniation d etected into the spinal canal. Procedure Note [facility], Radiant Results Inft User - 2019 8:37 AM CDT HISTORY: Chronic back pain, bilateral leg pain, getting worse. TECHNIQUE: Sagittal T2 FRFSE, T1, STIR a nd axial T2 FRFSE T1 studies of lumbar spines are obtained. Additional c oronal T2 FRFSE study is also obtained. FINDINGS: Minimal levoscoliosis noted. N o acute compression fracture or aggressive lesions of the bones detected . Spinal canal appears to be of adequate size and normal conus/cauda equ phong are found at the level of T12. Visualized retroperitoneum is unremarkab le for aortic aneurysm or enlarged lymph nodes or hydronephrosis. T12-L1, L1-L2, L2-L3, L3-L4, L4-L5, L5-S 1: All discs maintain normal height and hydration. No disc desiccation detec nolan. No bulging of the disc into the spinal canal. No foraminal narrowing . Facet arthritis noted with thickened lig amentum flavum at all lumbar levels, slightly more hypertrophic titus es at L3-L4 and L4-L5 levels with small amount of fluid noted in facet kalia nts at L3-L4, L4-L5, L5-S1. CONCLUSIONS: Multilevel lumbar facet art hritis. No disc degeneration, bulging of the disc or disc herniation d etected into the spinal canal. Performing Organization Address City/State/Zipcode Phone Number PACS/VR/DOSE documented in this encounter Visit Diagnoses Diagnosis Chronic bilateral low back pain, unspeci fied whether sciatica present documented in this encounter Insurance Payer Benefit Plan / Subscriber ID Effective Phone Address T ype Group Dates MEDICARE MEDICARE PART xxxxxxxxxxx 2015-Pres [phone] Medicare A & B ent [id number] [place] [id number] [employer] xxxxxxxxx 2018-Pres [address] [place] [id number] [place] [address] Ilya Ramirez (Home) [address] [place] [address] documented as of this encounter
--- OUTSIDE RECORDS SUMMARY | 2020-05-02 18:26 | XMS REPORT | Summary of Care ---
:1985 Author Organization [facility] Address [address] [place] [address] Care Team Providers Name Role Phone Pcp, Does Not Have A Primary Care Provider Reason for Visit Reason Comments Notification The patient has orders for a n MRI and is requesting pain medication Encounter Details Date Type Department Care Team Description 03/24/2020 Telephone [facility] Orthopaedic Beau Mishra otification (The Surgery- Neetu Dodge MD patient has orders for [address], [address] MRI and is [address] [place] [address] [place], [place] medication ) [phone] Allergies No Known Allergiesdocumented as of this encounter (statuses as of 03/26/2020) Medications Medication Sig Dispensed Refills Start Date [...] directions back pain, unspecified whether sciatica present diclofenac 75 mg EC Take 1 tablet by 60 tablet 0 03/26/2020 Active tabletIndications: Acute mouth 2 (two) pain of both knees times daily with meals. documented as of this encounter (statuses as of 03/26/2020) Active Problems No known active problemsdocumented as of this encounter (statuses as of 03/26/2020) Social History Tobacco Use Types Packs/Day Years [...] BOX Medicare A & B ent [id number] [place] [id number] [employer] [place] xxxxxxxxx 2018-Pres [address] [place] [id number] [place] [address] documented as of this encounter
--- OUTSIDE RECORDS SUMMARY | 2020-05-02 18:26 | XMS REPORT | Summary of Care ---
:1985 Author Organization [facility] Address [address] [place] [address] Care Team Providers Name Role Phone Pcp, Does Not Have A Primary Care Provider Reason for Visit Reason Comments Rx Concern/Question Encounter Details Date Type Department Care Team Description 03/31/2020 Telephone [facility] Orthopaedic Beau Mishra , Rx Concern/Question Surgery- Neetu MARTÍNEZ [address] [facility], [address] [facility] [place] [address] [place], [place] [phone] [phone] Allergies No Known Allergiesdocumented as of this encounter (statuses as of 04/01/2020) Medications Medication Sig Dispensed Refills Start Date [...] as of this encounter (statuses as of 04/01/2020) Active Problems No known active problemsdocumented as of this encounter (statuses as of 04/01/2020) Social History Tobacco Use Types Packs/Day Years [...] Treatment Date Type Specialty Care Team Description 04/08/2020 Appointment Radiology Beau Mishra MD [address] [address] [phone] Health Maintenance Due Date Last Done Comments [...] BOX Medicare A & B ent [id number] [place] [phone] [employer] xxxxxxxxx 2018-Pres [address] [place] [id number] [place] [address] documented as of this encounter
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
--- OUTSIDE RECORDS SUMMARY | 2020-05-02 18:26 | XMS REPORT | Summary of Care ---
:1985 Author Organization [facility] Address [address] [place] [address] Care Team Providers Name Role Phone Pcp, Does Not Have A Primary Care Provider Reason for Visit Reason Comments Refill Request Encounter Details Date Type Department Care Team Description 03/29/2020 Refill [facility] Orthopaedic Beau Mishra MD Refill Request Surgery- Hendrum [address] [facility], [place] [address]36 [place] [address] [phone] Allergies No Known Allergiesdocumented as of this encounter (statuses as of 03/30/2020) Medications Medication Sig Dispensed Refills Start End [...] pain of both DAILY WITH knees MEALS DICLOFENAC 75 mg EC TAKE 1 TABLET 60 tablet 1 Discontinued tabletIndications: BY MOUTH TWICE 0 20 Acute pain of both DAILY WITH knees MEALS documented as of this encounter (statuses as of 03/30/2020) Active Problems No known active problemsdocumented as of this encounter (statuses as of 03/30/2020) Social History Tobacco Use Types Packs/Day Years [...] Description 04/08/2020 Appointment Radiology Beau Mishra MD [address] [place], [place] [phone] Health Maintenance Due Date Last Done [...] BOX Medicare A & B ent [id number] [place] [phone] [employer] xxxxxxxxx 2018-Pres [address] Medicaid [place] [id number] [place] [address] documented as of this encounter
--- OUTSIDE RECORDS SUMMARY | 2020-05-02 18:27 | XMS REPORT | Summary of Care ---
:1985 Author Organization [facility] Address [address] [place] [address] Care Team Providers Name Role Phone Pcp, Does Not Have A Primary Care Provider Reason for Visit Reason Comments Follow-up MRI Results L[facility]Spine - [facility] Encounter Details Date Type Department Care Team Description 04/15/2020 Office Visit [facility] Orthopaedic Beau Mishra hronic bilateral low Surgery- Neetu Dodge MD back pain, unspecified [address], [address] whether sciatica [address] present (Primary Dx) [place] [address] [place], [place] [phone] Allergies No Known Allergiesdocumented as of this encounter (statuses as of 04/15/2020) Medications Medication Sig Dispensed Refills Start Date [...] as of this encounter (statuses as of 04/15/2020) Active Problems No known active problemsdocumented as of this encounter (statuses as of 04/15/2020) Social History Tobacco Use Types Packs/Day Years [...] been in contact with No / Unsure 04/15/2020 1:18 PM CDT someone who was confirmed or suspected to have Coronavirus / COVID-19? documented as of this encounter Last Filed Vital Signs Vital Sign Reading Time Taken Comments Blood Pressure 121/86 04/15/2020 1:27 PM CDT Pulse 88 04/15/2020 1:27 PM CDT Temperature - - Respiratory Rate - - Oxygen Saturation - - Inhaled Oxygen Concentration - - Weight 122.5 kg (270 lb) 04/15/2020 1:27 PM CDT Height 172.7 cm (5' 8") 04/15/2020 1:27 PM CDT Body Mass Index 41.05 04/15/2020 1:27 PM CDT documented in this encounter Progress Notes Beau Mishra MD - 04/15/2020 4:15 PM CDT Cc: Chief Complaint Patient presents with Follow-up MRI Results L-Spine - [facility] Gregory Skelton is a 35 year old male. Reports he continues to have pain radiating down both legs. Right to the ankle and left to the knee. Allergies Gregory has No Known Allergies. Medications Outpatient Medications Prior to Visit Medication Sig Dispense Refill DICLOFENAC 75 mg EC tablet TAKE 1 TABLET BY MOUTH TWICE DAILY WITH MEALS 60 tablet 1 methylPREDNISolone (MEDROL, KATHY,) 4 mg tablets Take by mouth SEE- INSTRUCTIONS. follow package directions 21 Each 0 DICLOFENAC 75 mg EC tablet TAKE 1 [...] file Gets together: Not on file Attends anglican service: Not on file Active member of [...] Psychiatric/Behavioral: Negative. Endocrine: Endocrine negative Vital Signs Physical Exam Musculoskeletal: General: Well-developed well-nourished oriented [...] function intact. Nursing note and vitals reviewed. HISTORY: Chronic back pain, bilateral leg pain, getting worse. TECHNIQUE: Sagittal T2 FRFSE, T1, STIR and axial T2 FRFSE T1 studies of lumbar spines are obtained. Additional coronal T2 FRFSE study is also obtained. FINDINGS: Minimal levoscoliosis noted. No acute compression fracture or aggressive lesions of the bones detected. Spinal canal appears to be of adequate size and normal conus/cauda equina are found at the level of T12. Visualized retroperitoneum is unremarkable for aortic aneurysm or enlarged lymph nodes or hydronephrosis. T12-L1, L1-L2, L2-L3, L3-L4, L4-L5, L5-S1: All discs maintain normal height and hydration. No disc desiccation detected. No bulging of the disc into the spinal canal. No foraminal narrowing. Facet arthritis noted with thickened ligamentum flavum at all lumbar levels, slightly more hypertrophic changes at L3-L4 and L4-L5 levels with small amount of fluid noted in facet joints at L3-L4, L4-L5, L5-S1. CONCLUSIONS: Multilevel lumbar facet arthritis. No disc degeneration, bulging of the disc or disc herniation detected into the spinal canal. Assessment/Plan Multilevel lumbar arthritis No surgery is required. He will do well with LESI. Referral to Dr. Christine to discuss his options. Follow up prn. documented in this encounter Plan of Treatment Health [...] BOX Medicare A & B ent [id number] [place] [address] [employer] xxxxxxxxx 2018-Pres [address] BOX [place] [id number] [place] [address] documented as of this encounter
--- OUTSIDE RECORDS SUMMARY | 2020-05-02 18:27 | XMS REPORT | Summary of Care ---
:1985 Author Organization [facility] Address [address] [place] [address] Care Team Providers Name Role Phone Pcp, Does Not Have A Primary Care Provider Reason for Visit Reason Comments Notification The patient is requesting pa in medication. He has been referred to Dr. Christine but is in pain now. The diclofenac gave him diarrhea so he stopped taking it Encounter Details Date Type Department Care Team Description 04/16/2020 Telephone [facility] Orthopaedic Beau Mishra otification (The Surgery- Neetu oDdge MD patient is requesting [address], [address] pain medication. He has [address] been referred to SAMANTHA Xiao [phone] SAMANTHA Christine but is in pain [phone] now. The diclofenac gave [phone] him diarrhea so he [phone] stopped taking it ) (Fax) Allergies No Known Allergiesdocumented as of this encounter (statuses as of 04/21/2020) Medications Medication Sig Dispensed Refills Start Date [...] as of this encounter (statuses as of 04/21/2020) Active Problems No known active problemsdocumented as of this encounter (statuses as of 04/21/2020) Social History Tobacco Use Types Packs/Day Years [...] BOX Medicare A & B ent [id number] [place] [phone] [employer] xxxxxxxxx 2018-Pres [address] [place] [id number] [place] [address] [facility] MEDICAID OF xxxxxxxxx Effective for [phone] [address] [facility] all dates [id number] [place] [address] documented as of this encounter
--- OUTSIDE RECORDS SUMMARY | 2020-05-02 18:27 | XMS REPORT | Summary of Care ---
:1985 Author Organization [facility] Address [address] [place] [address] Care Team Providers Name Role Phone Pcp, Does Not Have A Primary Care Provider Reason for Visit Reason Comments Follow-up MRI Results L[facility]Spine - [facility] Encounter Details Date Type Department Care Team Description 04/15/2020 Office Visit [facility] Orthopaedic Beau Mishra hronic bilateral low Surgery- Neetu Dodge MD back pain, unspecified [address], [address] whether sciatica [address] present (Primary Dx) [place] [address] [address] [place], [place] [phone] Allergies No Known Allergiesdocumented as of this [...] file Gets together: Not on file Attends jainism service: Not on file Active member of [...] BOX Medicare A & B ent [id number] [place] [address] [employer] xxxxxxxxx 2018-Pres [address] [place] [address] [place] [address] documented as of this encounter
[2020-05-02] MEDS ORDERED: IBUPROFEN 400 MG TAB ONE (19:54)
--- NOTE | 2020-05-02 20:42 | EDPHYS ---
Physician Documentation [facility] Name: Gregory Skelton Age: 35 yrs Sex: Male : 1985 Arrival Date: 05/02/2020 Time: 18:25 Bed 14 Private MD: ED Physician Pancho Brown HPI: 05/02 19:02 This 35 yrs old Black Male presents to ER via Wheelchair with complaints of Fall jmm Injury, Knee Injury, Finger Injury. 19:02 Details of fall: The patient fell from an upright position. Onset: The symptoms/episode jmm began/occurred acutely, just prior to arrival. Associated injuries: The patient sustained right thumb. This is a 35 year old male with no chronic medical conditions that presents to the ED with complaints of right thumb pain. Patient states his thumb hit the thigh of another player while playing basketball. Patient also complains of right chronic knee pain and left 2nd toe pain from previous injuries. . Historical: - Allergies: 18:36 No Known Allergies; aa5 - PMHx: 18:36 None; aa5 - PSHx: 18:36 R Knee; aa5 - Immunization history:: Adult Immunizations up to date. - Social history:: Smoking status: Patient denies any tobacco usage or history of. ROS: 19:02 Constitutional: Negative for fever, chills, and weight loss, Cardiovascular: Negative jmm for chest pain, palpitations, and edema, Respiratory: Negative for shortness of breath, cough, wheezing, and pleuritic chest pain. 19:02 MS/extremity: Positive for injury or acute deformity, pain. 19:02 All other systems are negative. Exam: 19:02 Constitutional: This is a well developed, well nourished patient who is awake, alert, jmm and in no acute distress. Head/Face: atraumatic. Eyes: EOMI, no conjunctival erythema appreciated ENT: Moist Mucus Membranes Neck: Trachea midline, Supple Chest/axilla: Normal chest wall appearance and motion. Cardiovascular: Regular rate and rhythm. No edema appreciated Respiratory: Normal respirations, no respiratory distress appreciated Abdomen/GI: Non distended, soft Back: Normal ROM Skin: General appearance color normal 19:02 Musculoskeletal/extremity: the base of the right thumb is ttp, < 2 sec dist cap refill, full radial pulse, no snuffbox tenderness. Left 2nd toe ttp, no erythema or swelling appreciated, full dorsalis pulse, NVI. 19:02 Skin: Appearance: Color: normal in color. 19:02 Neuro: Orientation: is normal, Mentation: is normal, Memory: is normal. 19:02 Psych: Behavior/mood is pleasant, cooperative. Vital Signs: 18:36 BP 113 / 80; Pulse 90; Resp 16 S; Temp 98.9(O); Pulse Ox 98% on R/A; aa5 18:57 BP 113 / 90; Pulse 87; Resp 18; Pulse Ox 100% on R/A; Pain 7/10; ks7 19:50 BP 113 / 83; Pulse 95; Resp 18; Pulse Ox 99% on R/A; Pain 8/10; ks7 20:51 BP 120 / 80; Pulse 85; Resp 18; Temp 98; Pulse Ox 100% on R/A; mg2 MDM: 19:02 Patient medically screened. [facility] 20:41 Data reviewed: vital signs, nurses notes. Counseling: I had a detailed discussion with [facility] the patient and/or guardian regarding: the historical points, exam findings, and any diagnostic results supporting the discharge/admit diagnosis, radiology results, the need for outpatient follow up, to return to the emergency department if symptoms worsen or persist or if there are any questions or concerns that arise at home. 05/02 19:23 Order name: Hand Right 3 View XRAY [facility] 05/02 19:23 Order name: Foot Left 3 View XRAY [facility] Administered Medications: 19:49 Drug: Motrin 800 mg Route: PO; ks7 20:51 Follow up: Response: No adverse reaction mg2 Disposition: 05/03 07:03 Co-signature as Attending Physician, Pancho Brown MD. rn Disposition: 05/02/20 20:42 Discharged to Home. Impression: Other sprain of right thumb. - Condition is Stable. - Discharge Instructions: Thumb Sprain. - Prescriptions for orphenadrine citrate 100 mg Oral Tablet Sustained Release - take 1 tablet by ORAL route 2 times per day As needed; 20 tablet. - Medication Reconciliation Form, Thank You Letter, Antibiotic Education, Prescription Opioid Use form. - Follow up: Ashish Abdi MD; When: 2 - 3 days; Reason: Recheck today's complaints, Continuance of care, Re-evaluation by your physician. Signatures: Dispatcher [employer] EDDewayne Suárez PA PA jmm Nieto, Roman, MD MD rn Calderon, Audri, RN RN aa5 Asa Garza RN RN mg2 Dafne Myles RN RN ks7 Corrections: (The following items were deleted from the chart) 05/02 20:52 20:42 05/02/2020 20:42 Discharged to Home. Impression: Other sprain of right thumb. mg2 Condition is Stable. Forms are Medication Reconciliation Form, Thank You Letter, Antibiotic Education, Prescription Opioid Use. Follow up: Ashish Abdi; When: 2 - 3 days; Reason: Recheck today's complaints, Continuance of care, Re-evaluation by your physician. shena
--- NOTE | 2020-05-02 20:42 | ER ---
Nurse's Notes [facility] Name: Gregory Skelton Age: 35 yrs Sex: Male : 1985 Arrival Date: 05/02/2020 Time: 18:25 Bed 14 Private MD: Diagnosis: Other sprain of right thumb Presentation: 05/02 18:36 Chief complaint: Patient states: "I was playing basketball and I fell and hurt my right aa5 knee, right thumb, and left toe". 18:36 Coronavirus screen: Client denies travel out of the [place] in the last 14 days. At this aa5 time, the client does not indicate any symptoms associated with coronavirus-19. Ebola Screen: Patient negative for fever greater than or equal to 101.5 degrees Fahrenheit, and additional compatible Ebola Virus Disease symptoms. Initial Sepsis Screen: Does the patient meet any 2 criteria? No. Patient's initial sepsis screen is negative. Does the patient have a suspected source of infection? No. Patient's initial sepsis screen is negative. Risk Assessment: Do you want to hurt yourself or someone else? Patient reports no desire to harm self or others. Onset of symptoms was May 02, 2020. 18:36 Acuity: LIZETH 4 aa5 18:36 Method Of Arrival: Wheelchair aa5 Historical: - Allergies: 18:36 No Known Allergies; aa5 - PMHx: 18:36 None; aa5 - PSHx: 18:36 R Knee; aa5 - Immunization history:: Adult Immunizations up to date. - Social history:: Smoking status: Patient denies any tobacco usage or history of. Screenin:54 Abuse screen: Denies threats or abuse. Denies injuries from another. Nutritional ks7 screening: No deficits noted. Tuberculosis screening: No symptoms or risk factors identified. Fall Risk None identified. Assessment: 18:54 General: Appears in no apparent distress. uncomfortable, obese, Behavior is calm, ks7 cooperative. Pain: Complains of pain in right thumb, left 2nd toe, and right knee Pain does not radiate. Pain currently is 8 out of 10 on a pain scale. Quality of pain is described as sharp, throbbing, Pain began 1 hour ago. Is continuous, Alleviated by rest, Aggravated by increased activity. Musculoskeletal: Reports pain in R knee, R thumb, L 2nd toe. pt was playing basketball [employer] and injured himself. Vital Signs: 18:36 BP 113 / 80; Pulse 90; Resp 16 S; Temp 98.9(O); Pulse Ox 98% on R/A; aa5 18:57 BP 113 / 90; Pulse 87; Resp 18; Pulse Ox 100% on R/A; Pain 7/10; ks7 19:50 BP 113 / 83; Pulse 95; Resp 18; Pulse Ox 99% on R/A; Pain 8/10; ks7 20:51 BP 120 / 80; Pulse 85; Resp 18; Temp 98; Pulse Ox 100% on R/A; mg2 ED Course: 18:25 Patient arrived in ED. [facility] 18:28 Dewayne Jacobo PA is PHCP. [facility] 18:28 Pancho Brown MD is Attending Physician. [facility] 18:36 Arm band placed on. aa5 18:47 Dafne Myles RN is Primary Nurse. ks7 18:47 Triage completed. aa5 18:54 Resting quietly. ks7 18:54 Patient has correct armband on for positive identification. Bed in low position. Call ks7 light in reach. Side rails up X2. 18:54 No provider procedures requiring assistance completed. ks7 19:50 xray in room. ks7 20:42 Ashish Abdi MD is Referral Physician. jmm 20:49 Patient did not have IV access during this emergency room visit. mg2 20:49 Velcro wrist splint applied to right wrist. thumb spica. mg2 Administered Medications: 19:49 Drug: Motrin 800 mg Route: PO; ks7 20:51 Follow up: Response: No adverse reaction mg2 Outcome: 20:42 Discharge ordered by . jmm 20:50 Discharged to home ambulatory. mg2 20:50 Condition: stable 20:50 Discharge instructions given to patient, Instructed on discharge instructions, follow up and referral plans. medication usage, Demonstrated understanding of instructions, follow-up care, medications, Prescriptions given X 1. 20:52 Patient left the ED. mg2 Signatures: Dewayne Jacobo PA PA jmm Calderon, Audri, RN RN [facility] Asa Garza RN RN mg2 Mandy Ramírez 5 Songcuan, Dafne, RN RN ks7
[2020-05-02 21:01] VITALS: BP 120/80; TEMP 98; O2SAT 100
--- NOTE | 2020-05-02 21:16 | RAD REPORT ---
EXAM DESCRIPTION: RAD - Hand Right 3 View - 05/02/2020 8:02 pm CLINICAL HISTORY: PAIN COMPARISON: Hand Right 3 View dated 03/12/2019 FINDINGS: No fracture is identified. There is no dislocation or periosteal reaction noted. No forei gn body or significant soft tissue abnormality. IMPRESSION: Negative right hand examination.
--- NOTE | 2020-05-02 21:17 | RAD REPORT ---
EXAM DESCRIPTION: RAD - Foot Left 3 View - 05/02/2020 8:02 pm CLINICAL HISTORY: foot pain COMPARISON: No comparisons FINDINGS: No fracture, dislocation or periosteal reaction. No acute or destructive bony process. On the lateral view superimposed soft tissues create lucent lines in the first distal phalanx and secon d distal phalanx. No air or foreign body in the soft tissues. IMPRESSION: Negative left foot examination.
== END 2020-05-02 20:52 | disposition home or self-care (01) ==
LOC: ER 18:22
DX: S63.681A Other sprain of right thumb, initial encounter (principal); W51.XXXA Accidental striking against or bumped into by another person, initial encounter; Y93.67 Activity, basketball; Y92.9 Unspecified place or not applicable
CPT/HCPCS: 99283